=== PATIENT | female | born 1945 | race Caucasian/White ===

== ENCOUNTER → 2016-09-23 | Outpatient (CLI) | payer MEDICARE, OTHER | END | disposition home or self-care (01) | LOC: GMAB 10:39 | PROVIDERS: ATTEND Family Medicine | DX: I10 Essential (primary) hypertension (principal); E78.5 Hyperlipidemia, unspecified ==

== ENCOUNTER → 2017-10-07 | Outpatient (CLI) | payer MEDICARE, OTHER | LOC: GMAB 10:46 | PROVIDERS: ATTEND Family Medicine | DX: I10 Essential (primary) hypertension (principal) ==

== ENCOUNTER → 2017-10-21 | Outpatient (CLI) | payer MEDICARE, OTHER ==
--- NOTE | 2017-10-22 16:04 | MAM ---
EXAM DESCRIPTION: 3D Screening BILATERAL : Digital Mammography. CLINICAL HISTORY: 72 years Female SCREENING . No complaints. No family history of breast cancer. Childbirth. Postmenopausal. Has taken HRT 5 or more years ago. COMPARISON: 2-D digital screening bilateral study 08/21/2015. No prior reports available. TECHNIQUE: Bilateral CC and MLO projection full-field images, 3-D tomosynthesis digital mammographic technique. CAD not utilized. FINDINGS: The breast parenchymal density pattern is: Scattered areas of fibroglandular density. No skin thickening or nipple retraction. Bilateral vascular calcifications. Bilateral solitary microcalcifications. No new focal, stellate mass or density, focal asymmetry , and no suspicious microcalcifications bilaterally. Stable mammograms compared to prior study, taking into account differences in mammographic technique. IMPRESSION: BI-RADS CATEGORY: 2 - BENIGN FINDINGS. FOLLOW UP: Routine digital bilateral screening, one year interval from September 2017. Written communication explaining the IMPRESSION and follow-up, will be mailed to the patient and referring health care provider. According to the [employer], yearly mammograms are recommended starting at age 40 and continuing as long as a woman is in good health. Any breast change noted on a breast self-exam should be reported promptly to the patient's healthcare provider. Breast MRI is recommended for women with an approximately 20-25% or greater lifetime risk of breast cancer, including women with a strong family history of breast or ovarian cancer and women who have been treated for Hodgkin's disease. A negative mammographic report should not delay tissue diagnosis in patients with significant clinical history or physical findings. Extremely dense breast tissue limits the sensitivity of digital mammography. Electronically signed by: Magdy Suarez MD 10/22/2017 4:02 PM CDT
== END ==
LOC: MAMMO 10:00
PROVIDERS: ATTEND Family Medicine
DX: Z12.31 Encounter for screening mammogram for malignant neoplasm of breast (principal)

== ENCOUNTER → 2018-07-05 | Outpatient (CLI) | payer MEDICARE, OTHER ==
--- NOTE | 2018-07-05 16:27 | CT ---
EXAM DESCRIPTION: Abdomen/Pelvis w/Contrast: Computed Tomography. CLINICAL HISTORY: 73 years Female ABD PAIN. Upper abdomen. COMPARISON: None. TECHNIQUE: Spiral-axial scans at 5 x 5 mm intervals through the abdomen and pelvis, after nonionic IV contrast without oral contrast. Coronal and sagittal 2.0 mm reconstructions. Delayed scans, liver through the pelvis. Axial-spiral 5mm. No adverse reactions. Total Exam DLP: 1576.55 mGy-cm. This exam was performed according to our departmental dose-optimization program which includes automated exposure control, adjustment of the mA and/or kV according to patient size and/or use of iterative reconstruction technique; to reduce radiation dose to as low as reasonably achievable (ALARA). FINDINGS: Lung bases and pleura: Posterior and basilar dependent atelectasis bilaterally. Small nodule associated with the pleura lateral left lower lobe. Minimal left pleural thickening at the base. Liver, Stomach, Spleen, Adrenal Glands: Bilobed cyst inferior subcapsular right hepatic lobe. A much smaller nonenhancing lesion, probably subcapsular cyst lateral segment left lobe. Both lesions stable on delayed contrast images. Normal sized stomach with possible small hiatal hernia. Other solid organs unremarkable. Pancreas, Gallbladder, Ducts: Minimal wall enhancement inferior gallbladder without abnormal fatty enhancement or density. Common bile duct and pancreas are negative. Kidneys and Ureters: Negative. Mesentery: Unremarkable. Aorta: Minimal atherosclerotic calcification including the ostia of the major branching vessels. Small Bowel: Minimal gas within normal caliber. No air-fluid levels. Terminal Ileum/Cecum: Normal caliber TI and appendix with normal surrounding fat. Mild distention of cecum with fecal matter. Colon: Fecal matter also in the rectosigmoid and ascending colon. No air-fluid levels. Pelvic Organs: Urinary bladder containing a radiodense stones. Vaginal cuff unremarkable. Ovaries not seen. No fluid in the cul-de-sac. 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 Incomplete right SI joint. L5-S1 disc bulging and spondylosis. Also spondylosis L1-L2 and lower thoracic spine. Air density in the bilateral SI joints with periarticular sclerosis inferiorly on the left. Minimal arthrosis pubic symphysis and bilateral hip joints Abdominal Wall/Back Soft Tissues: Large fatty inguinal hernia on the right not containing bowel. Smaller hernia on the left. Minimal diastases at the umbilicus not containing bowel. IMPRESSION: 1. No free air or free fluid in the abdomen or pelvis. No abnormal fatty stranding or fascial thickening. No peritoneal or retroperitoneal mass. 2. Probable cysts in the liver. Minimal fecal matter throughout the colon. Normal CT appearance of the appendix and surrounding fatty tissue. 3. 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 This type of anomaly can be a cause of abnormal biomechanics and source of low back pain. 4. Large fatty inguinal hernia on the right not containing bowel. Smaller hernia on the left not containing bowel. Electronically signed by: Magdy Suarez MD 07/05/2018 4:23 PM CDT
== END ==
LOC: CT 13:13
PROVIDERS: ATTEND Family Medicine
DX: K40.20 Bilateral inguinal hernia, without obstruction or gangrene, not specified as recurrent (principal)

== ENCOUNTER → 2018-07-08 | Outpatient (CLI) | payer MEDICARE, OTHER ==
--- NOTE | 2018-07-08 13:06 | US ---
EXAM DESCRIPTION: Liver: ULTRASOUND. CLINICAL HISTORY: ABD PAIN COMPARISON: CT abdomen and pelvis 07/05/2018. TECHNIQUE: Transabdominal scannin-dimensional and Doppler modes. FINDINGS: Gallbladder: normal size, shape, echogenicity; no intraluminal stones or sludge. No fluid around the gallbladder. No wall thickening. 1.8 mm. 3.4 mm echogenic polyp on the posterior wall of the gallbladder with no acoustic shadowing and no movement with change in position. Non-tender with transducer pressure. Common bile duct: caliber 3.9 mm within normal limits. Liver: normal echogenicity; contour liver capsule smooth where seen. Septated hepatic cyst measuring 3.1 x 2.6 x 2.3 cm nonvascular. No fluid around the liver. Intrahepatic biliary ducts normal caliber. Doppler hepatopedal flow portal vein. 1.1 cm. Long axis right lobe 12.3 Pancreas: normal size and echogenicity. Duct not seen. Right kidney: Long axis measures 11.7 cm. Normal echogenicity. Normal cortical thickness. No hydronephrosis IMPRESSION: 1. Septated cyst in the liver, otherwise unremarkable appearance. No ascites. 2. Small polyp in the posterior wall of the gallbladder. No gallbladder stones or sludge. No wall thickening or pericholecystic fluid. Nontender. 3. Normal ultrasound of the pancreas and right kidney. Electronically signed by: Magdy Suarez MD 07/08/2018 1:03 PM CDT
== END ==
LOC: US 09:30
PROVIDERS: ATTEND Family Medicine
DX: R10.84 Generalized abdominal pain (principal); K76.89 Other specified diseases of liver; K82.4 Cholesterolosis of gallbladder; R93.3 Abnormal findings on diagnostic imaging of other parts of digestive tract

== ENCOUNTER → 2019-02-07 | Outpatient (CLI) | payer MEDICARE, OTHER ==
--- NOTE | 2019-02-08 19:44 | MAM ---
EXAM DESCRIPTION: 3D Screening BILATERAL : Digital Mammography. CLINICAL HISTORY: 73 years Female SCREENING . No complaints. No personal or family history of breast cancer. Menarche age 14. Childbirth. Postmenopausal 25 years plus. HRT 5 or more years before.. Lifetime risk of developing breast cancer (Tyrer-Cuzick model)(%): 3.0. COMPARISON: Bilateral screening digital breast tomosynthesis 13 October 2017.. TECHNIQUE: Bilateral CC and MLO projection full-field images, digital tomosynthesis mammographic technique. Bilateral digital 2-D full-field MLO images. CAD not available for tomosynthesis or 2-D images. FINDINGS: The breast parenchymal density pattern is: Scattered areas of fibroglandular density. No skin thickening or nipple retraction. Focal asymmetry in the middle third of the inferior and medial left breast. Stable since the prior study. Bilateral solitary microcalcifications. Bilateral vascular calcifications. No new focal, stellate mass or density, focal asymmetry , and no suspicious microcalcifications bilaterally. Stable mammograms compared to prior study. Taking into account, differences in mammographic technique. IMPRESSION: Benign exam. BIRAD CATEGORY: 2 BENIGN FINDINGS. RECOMMENDATIONS: FOLLOW UP: Routine digital bilateral mammographic screening, one year interval from January 2019. Written communication explaining the IMPRESSION and follow-up, will be mailed to the patient and referring health care provider. According to the [employer], yearly mammograms are recommended starting at age 40 and continuing as long as a woman is in good health. Any breast change noted on a breast self-exam should be reported promptly to the patient's healthcare provider. Breast MRI is recommended for women with an approximately 20-25% or greater lifetime risk of breast cancer, including women with a strong family history of breast or ovarian cancer and women who have been treated for Hodgkin's disease. A negative mammographic report should not delay tissue diagnosis in patients with significant clinical history or physical findings. Extremely dense breast tissue limits the sensitivity of digital mammography. Electronically signed by: Magdy Suarez MD 02/08/2019 7:42 PM CDT
== END ==
LOC: MAMMO 10:29
PROVIDERS: ATTEND Family Medicine
DX: Z12.31 Encounter for screening mammogram for malignant neoplasm of breast (principal)

== ENCOUNTER 2019-10-01 20:34 | Emergency (ER) | payer MEDICARE, OTHER ==
[2019-10-01 20:54] VITALS: O2SAT 94
--- NOTE | 2019-10-01 21:14 | ED.PDOC ---
History of Present Illness - General Chief Complaint: Allergic Reaction Stated Complaint: rash to face and hands Time Seen by Provider: 10/01/19 21:10 Source: patient, RN notes reviewed, Vital Signs reviewed Exam Limitations: no limitations - History of Present Illness Initial Comments: Patient is a 74-year-old white female who was out sprain bug spray, [employer], in her backyard today. She noted that she had redness on her face and cheeks with a burning sensation to her skin. She washed it off for 15 minutes and cold water at home but still complains of burning to her skin. It is moderate in intensity. There is no radiation. Nothing makes it better or worse. Timing/Duration: 4-6 hours Severity: moderate Improving Factors: nothing Worsening Factors: nothing Associated Symptoms: denies symptoms Allergies/Adverse Reactions: Allergies Diazepam [From Valium] Allergy (Verified 10/28/15 11:24) Home Medications: Ambulatory Orders Atorvastatin Calcium [Lipitor] 10 mg PO DAILY 10/28/15 Azithromycin [Zithromax Z-Jama] 1 ea PO DAILY #1 pack 10/28/15 Esomeprazole Magnesium [Nexium] 40 mg PO DAILY 10/28/15 Ibandronate Sodium 150 mg PO DAILY 10/28/15 Losartan Potassium 100 mg PO DAILY 10/28/15 Rosuvastatin Calcium [Crestor] 10 mg PO DAILY 10/28/15 Methylprednisolone [Medrol Dose Jama] 4 mg PO DAILY 6 Days #21 tab 10/01/19 Review of Systems - Review of Systems Constitutional: States: no symptoms reported, see HPI. Denies: chills, fever, malaise, weakness EENTM: States: no symptoms reported. Denies: eye pain, blurred vision Respiratory: States: no symptoms reported. Denies: cough, short of breath, stridor, wheezing Cardiology: States: no symptoms reported. Denies: chest pain, palpitations Gastrointestinal/Abdominal: States: no symptoms reported. Denies: abdominal pain, constipation, diarrhea, nausea, vomiting Musculoskeletal: States: no symptoms reported. Denies: back pain, gout, joint pain, neck pain Skin: States: see HPI, change in color, rash - Over face. Red in nature. Neurological: States: no symptoms reported. Denies: numbness, tingling, weakness Endocrine: States: no symptoms reported Hematologic/Lymphatic: States: no symptoms reported All other Systems: Reviewed and Negative Past Medical History (General) - Patient Medical History Hx Hypertension: Yes Surgical History: Hysterectomy - Vaccination History Hx Tetanus, Diphtheria Vaccination: Yes Hx Influenza Vaccination: Yes Hx Pneumococcal Vaccination: Yes - Social History Hx Tobacco Use: No Hx Alcohol Use: Yes - occ Family Medical History - Family History Mother Family History: Unknown Physical Exam - Physical Exam General Appearance: Alert, Anxious, Well Developed, Well Groomed, Well Hydrated, Well Nourished Eye Exam: bilateral normal Ears, Nose, Throat: hearing grossly normal, normal ENT inspection, normal pharynx Neck: non-tender, full range of motion, supple, normal inspection Respiratory: chest non-tender, lungs clear, normal breath sounds, no respiratory distress, no accessory muscle use Cardiovascular/Chest: normal peripheral pulses, regular rate, rhythm, no edema, no gallop, no JVD, no murmur Peripheral Pulses: radial,right: 2+, radial,left: 2+ Gastrointestinal/Abdominal: normal bowel sounds, non tender, soft, no organomegaly Back Exam: normal inspection, no CVA tenderness, no vertebral tenderness Extremity: normal range of motion, non-tender, normal inspection 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 Nonblanching. Lymphatic: no adenopathy Progress - Progress Progress: Differential diagnosis: Contact dermatitis, chemical dermatitis, allergic reaction, drug reaction among others. 10/01/19 22:28 Patient's rash is improving after the Decadron and Benadryl. Plan to discharge home with a Medrol Dosepak and instructions to take Benadryl 25 mg every 6 hours. I have discussed this plan of care with the patient and she voices understanding and agreement. Jaycob Granados M.D. #[id number] Departure - Departure Clinical Impression: Exposure to chemical irritant, Pesticide exposure, Chemical induced allergic contact dermatitis Time of Disposition: 22:30 Disposition: Discharge to Home or Self Care Condition: Good Departure Forms: ED Discharge - Pt. Copy, Patient Portal Self Enrollment Instructions: Skin Rash (DC), Adverse Drug Reactions, Adult (DC) Diet: resume usual diet Activity: increase activity as tolerated Referrals: Anshu Petersen MD [Primary Care Provider] - 1-2 Days Prescriptions: Methylprednisolone [Medrol Dose Jama] 4 mg PO DAILY 6 Days #21 tab Home Medications: Ambulatory Orders Atorvastatin Calcium [Lipitor] 10 mg PO DAILY 10/28/15 Azithromycin [Zithromax Z-Jama] 1 ea PO DAILY #1 pack 10/28/15 Esomeprazole Magnesium [Nexium] 40 mg PO DAILY 10/28/15 Ibandronate Sodium 150 mg PO DAILY 10/28/15 Losartan Potassium 100 mg PO DAILY 10/28/15 Rosuvastatin Calcium [Crestor] 10 mg PO DAILY 10/28/15 Methylprednisolone [Medrol Dose Jama] 4 mg PO DAILY 6 Days #21 tab 10/01/19
[2019-10-01] MEDS ORDERED: diphenhydrAMINE HCL 50 MG/ML VIAL IM ONE (21:23)
[2019-10-01] MEDS ORDERED: DEXAMETHASONE INJ 10 MG/ML VIAL IM ONE (21:24)
[2019-10-01 22:45] VITALS: BP 159/114; TEMP 96.7
== END 2019-10-01 22:45 | disposition home or self-care (01) ==
LOC: ER 20:34
DX: L23.5 Allergic contact dermatitis due to other chemical products (principal); I10 Essential (primary) hypertension; Z79.899 Other long term (current) drug therapy
CPT/HCPCS: J1100; J1200

== ENCOUNTER → 2019-12-26 | Outpatient (CLI) | payer MEDICARE, OTHER | LOC: GMAM 10:34 | PROVIDERS: ATTEND Family Medicine | DX: D51.9 Vitamin B12 deficiency anemia, unspecified (principal); R53.83 Other fatigue; E55.9 Vitamin D deficiency, unspecified; I10 Essential (primary) hypertension; R73.09 Other abnormal glucose ==

== ENCOUNTER → 2020-03-26 | Outpatient (CLI) | payer MEDICARE, OTHER ==
--- NOTE | 2020-03-27 15:48 | MAM ---
EXAM DESCRIPTION: 3D Screening BILATERAL : Digital Mammography. CLINICAL HISTORY: 74 years Female screening . No complaints. No family history of breast cancer. Menarche age 14. Childbirth age 19. Menopause age 47. HRT 5 or more years ago.. Lifetime risk of developing breast cancer (Tyrer-Cuzick model)(%): 3.9. COMPARISON: Bilateral screening digital breast tomosynthesis January 2019 and September 2017 TECHNIQUE: Bilateral CC and MLO projection full-field images, digital tomosynthesis mammographic technique. Bilateral digital 2-D full-field MLO images. CAD available for 2-D images. FINDINGS: The breast parenchymal density pattern is: Scattered areas of fibroglandular density. Vascular calcifications. Solitary microcalcifications and coarse calcifications. Intramammary lymph nodes. No skin thickening or nipple retraction No new focal, stellate mass or density, focal asymmetry , and no suspicious microcalcifications bilaterally. Stable mammograms compared to prior study. IMPRESSION: Benign exam. BIRAD CATEGORY: 2 BENIGN FINDINGS. RECOMMENDATIONS: FOLLOW UP: Routine digital bilateral mammographic screening, one year interval from March 2020. Written communication explaining the IMPRESSION and follow-up, will be mailed to the patient and referring health care provider. According to the [employer], yearly mammograms are recommended starting at age 40 and continuing as long as a woman is in good health. Any breast change noted on a breast self-exam should be reported promptly to the patient's healthcare provider. Breast MRI is recommended for women with an approximately 20-25% or greater lifetime risk of breast cancer, including women with a strong family history of breast or ovarian cancer and women who have been treated for Hodgkin's disease. A negative mammographic report should not delay tissue diagnosis in patients with significant clinical history or physical findings. Extremely dense breast tissue limits the sensitivity of digital mammography. Electronically signed by: Magdy Suarez MD 03/27/2020 3:47 PM [employer]IST[employer]INC[employer]AL
== END ==
LOC: MAMMO 09:57
PROVIDERS: ATTEND Family Medicine
DX: Z12.31 Encounter for screening mammogram for malignant neoplasm of breast (principal)

== ENCOUNTER → 2020-03-28 | Outpatient (CLI) | payer MEDICARE, OTHER | LOC: GMAM 14:43 | PROVIDERS: ATTEND Family Medicine | DX: D51.9 Vitamin B12 deficiency anemia, unspecified (principal); R10.84 Generalized abdominal pain ==